=== PATIENT | female | born 1970 | race African-American/Black ===

== ENCOUNTER 2017-04-11 12:48 | Emergency (ER) | payer MEDICAID ==
[~2017-04-11] VITALS: Ht 162.6 cm; Wt 100.0 kg
[~2017-04-11 12:48] MED LIST: FERROUS SULFATE
[2017-04-11] MEDS ORDERED: MORPHINE SULFATE 4 MG/ML CPJ (NOT FOR IM USE) IV STA (13:46)
[2017-04-11] MEDS ORDERED: ONDANSETRON HCL 4MG/2ML VIAL IV STA (13:46)
[2017-04-11 15:09] LABS: HCG SCREEN NEGATIVE
[2017-04-11 17:35] VITALS: BP 147/55
== END 2017-04-11 18:03 | disposition home or self-care (01) ==
LOC: ER 12:53
DX: M79.604 Pain in right leg (principal); I10 Essential (primary) hypertension; W01.0XXA Fall on same level from slipping, tripping and stumbling without subsequent striking against object, initial encounter; Y93.E1 Activity, personal bathing and showering; Y92.89 Other specified places as the place of occurrence of the external cause; Z86.73 Personal history of transient ischemic attack (TIA), and cerebral infarction without residual deficits
CPT/HCPCS: 70450; 73502; 84703; 96374; 96375; 99285; J2270; J2405; Z7610